=== PATIENT | male | born 1965 | race American Indian/Alaskan Native ===

== ENCOUNTER 2022-05-13 10:06 | Emergency (ER) | payer SELFPAY ==
[2022-05-13 11:30] VITALS: BP 107/73
[2022-05-13 13:01] LABS: Alanine Aminotransferase 14 units/L (7-56); Albumin 4.7 g/dL (3.9-5); BUN/Creatinine Ratio 14; Blood Urea Nitrogen 13 mg/dL (9-20); Hemolysis Index 29
[2022-05-13 13:04] LABS: Basophils % (Auto) 0.3 % (0.0-1.8); Eosinophils % (Auto) 0.5 % (0.0-4.3); Hematocrit 43.2 % (35.5-45.6); Hemoglobin 14.7 gm/dl (11.8-15.2); INR 0.85 (0.87-1.13); Lymphocytes # (Auto) 1.6 K/mm3 (1.2-5.4); Lymphocytes % (Auto) 40.1 % (13.4-35.0); Mean Corpuscular HGB Conc 34 % (32-34); Mean Corpuscular Volume 96 fl (84-94); Monocytes # (Auto) 0.5 K/mm3 (0.0-0.8); Monocytes % (Auto) 11.6 % (0.0-7.3); Platelet Count 280 K/mm3 (140-440); Red Blood Count 4.49 M/mm3 (3.65-5.03); Red Cell Distribution Width 13.1 % (13.2-15.2)
[2022-05-13 13:05] LABS: Partial Thromboplastin Time 30.3 Sec. (24.2-36.6)
--- NOTE | 2022-05-13 14:43 | Emergency Department Report ---
Upper Extremity - HPI Chief Complaint: Extremity Injury, Upper Stated Complaint: RIGHT SHOULDER/NECK/PAIN AND TINGLING Time Seen by Provider: 05/13/22 12:29 Severity: mild Symptoms: Yes Numbness, No Pain with Movement, No Deformity, No Limited Range of Movement, No Weakness, No Swelling, No Bruising/Ecchymosis, No Laceration or Abrasion Other History: 56-year-old male with multiple medical history including neck surgery presents with neck pain. Patient reports he has staph in his neck has b een there for over 3 months now he thinks the staff is in his right arm causing him to have pain radiating down his right arm with numbness and tingling. He denies new fall or injury, states he went to his doctor's office yesterday and they did blood work and an x-ray and told him he did have a staph infection however he continues to insist there is a staph infection he denies fever chills nausea vomiting, states he has a wound on his right hand which he thinks is also from the staff ED Review of Systems ROS: Stated complaint: RIGHT SHOULDER/NECK/PAIN AND TINGLING Other details as noted in HPI Constitutional: denies: chills, fever ENT: denies: ear pain Respiratory: denies: see HPI, cough, orthopnea Cardiovascular: denies: chest pain, palpitations Gastrointestinal: denies: abdominal pain, nausea, vomiting Musculoskeletal: denies: back pain, joint swelling, myalgia Skin: denies: rash, lesions, pruritus Neurological: denies: headache, weakness ED Past Medical Hx - Past Medical History Hx Hypertension: No Hx Heart Attack/AMI: No Hx Congestive Heart Failure: No Hx Diabetes: No Hx Deep Vein Thrombosis: No Hx Pulmonary Embolism: No Hx Renal Disease: No Hx Seizures: No Hx Kidney Stones: No Hx Asthma: No Hx COPD: No Hx Tuberculosis: No Hx Dementia: No Hx HIV: No - Surgical History Hx Coronary Stent: No Hx Open Heart Surgery: No Hx Pacemaker: No Hx Internal Defibrillator: No Hx Cholecystectomy: No Hx Appendectomy: No Hx Breast Surgery: No - Social History Smoking Status: Never Smoker Substance Use Type: None - Medications Home Medications: Home Medications Medication Instructions Recorded Confirmed Last Taken Type HYDROcodone/APAP 5-325 [[place] 1 each PO Q8HR PRN #10 tablet 11/09/13 Unknown Rx 5/325 mg] Ibuprofen [Advil 100 MG tab] 200 mg PO Q6H PRN #20 tablet 11/09/13 Unknown Rx Omeprazole Magnesium [Prilosec Otc] 20 mg PO DAILY PRN #15 tablet. 11/09/13 Unknown Rx Ciprofloxacin HCl [Cipro] 500 mg PO Q12H #20 tab 02/11/14 Unknown Rx HYDROcodone/APAP 5-325 [[place] 1 each PO Q6HR PRN #12 tablet 02/11/14 Unknown Rx 5-325 mg TAB] Gabapentin 300 mg PO BID #30 cap 05/13/22 Unknown Rx Upper Extremity Exam - Exam General: Vital signs noted. No distress. Alert and acting appropriately. No sign of any infection no broken skin or warmth fluctuance or erythema Skin Head and Torso: No HEENT Abnormality, No Neck Tenderness, No Chest/Lungs Abnormality, No Abdominal Tenderness, No Back Tenderness Shoulder Exam: Yes Normal Range of Motion in Shoulder, No Shoulder Tenderness, No Clavicle Tenderness, No Shoulder Deformity, No AC Joint Tenderness Arm Exam: No Arm/Humerus Tenderness, No Arm Deformity Elbow: Yes Normal Range of Motion in Elbow, No Elbow Tenderness, No Elbow Deformity Forearm: No Forearm Tenderness, No Forearm Deformity, No Pain with Pronation, No Pain with Supination Wrist: No Wrist Tenderness, No Normal ROM in Wrist, No Wrist Deformity, No Snuffbox Tenderness, No Pain with Axial Thumb Compression Hand: Yes Normal ROM in Digit(s), No Hand Tenderness, No Hand Deformity, No Digit Tenderness, No Digit(s) Deformity, No Tendon Dysfunction CMS Exam: Yes Normal Distal Pulses, Yes Normal Capillary Refill, Yes Normal Distal Sensation, No Broken Skin ED Course Vital Signs 05/13/22 11:27 Temperature 98.5 F Pulse Rate 87 Respiratory 18 Rate Blood Pressure 107/73 [Left] O2 Sat by Pulse 99 Oximetry ED Medical Decision Making - Lab Data Result diagrams: 05/13/22 11:56 05/13/22 11:56 - Medical Decision Making 56-year-old male with multiple medical history including neck surgery presents with neck pain. Patient reports he has staph in his neck has been there for ov er 3 months now he thinks the staff is in his right arm causing him to have pain radiating down his right arm with numbness and tingling. He denies new fall or injury, states he went to his doctor's office yesterday and they did blood work and an x-ray and told him he did have a staph infection however he continues to insist there is a staph infection he denies fever chills nausea vomiting, state s he has a wound on his right hand which he thinks is also from the staph. Symptoms are more consistent with cervical radiculopathy versus a staph infection in his neck. His skin is intact there is no breakage in his skin, there is no erythema no warmth no fluctuance or abscess noted in his neck area. 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 Discharge him with some gabapentin, I encourage him to follow-up with his doctor for further evaluation. Since he still insists he has a staph infection, I told him he does need to get some blood cultures done by his doctor's office and they can follow-up with that. He is not too pleased with it in fact his continues to yell and become belligerent have had security to escort him out of the emergency department have also given him his prescription for gabapentin and referral. Audio voice dictation device used, hence the chart might contain some dictation errors, mispronunciations, wrong spelling and wrong verbiage. Critical care attestation.: If time is entered above; I have spent that time in minutes in the direct care of this critically ill patient, excluding procedure time. ED Disposition Clinical Impression: Neuropathy, Cervical radiculopathy Disposition: HOME / SELF CARE / HOMELESS Is pt being admited?: No Does the pt Need Aspirin: No Condition: Stable Instructions: Radicular Pain Prescriptions: Gabapentin 300 mg PO BID #30 cap
[2022-05-13] MEDS ORDERED: HYDROcodone/ACETAMINOPHEN 5-325 MG TAB PO ONE (15:14)
[2022-05-13] MEDS ORDERED: IBUPROFEN 800 MG TAB PO ONE (15:15)
--- NOTE | 2022-05-15 13:24 | Electrocardiograph Report ---
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
== END 2022-05-13 15:33 | disposition home or self-care (01) ==
LOC: ED 10:06
DX: G62.9 Polyneuropathy, unspecified (principal); M54.12 Radiculopathy, cervical region
CPT/HCPCS: 36415; 80053; 84484; 85025; 85610; 85730; 93005; 99283